=== PATIENT | female | born 1970 | race Caucasian/White ===

== ENCOUNTER 2017-08-23 10:47 | Emergency (ER) | payer OTHER ==
[2017-08-23 11:57] VITALS: BP 120/83
--- NOTE | 2017-08-23 12:19 | UC ---
Ear Complaint HPI - HPI Summary HPI Summary: Pt c/o right ear pain, nasal congestion X 3-4 days. Pt completed 500 mg zithromax X 5 days on 08/16/17 - History of Current Complaint Chief Complaint: UCEar Stated Complaint: RIGHT EAR COUGH SORE THROAT Time Seen by Provider: 08/23/17 11:59 Hx Obtained From: Patient ?: No Onset/Duration: Sudden Onset, Lasting Days Severity Initially: Mild Severity Currently: Moderate Associated Signs/Symptoms: Positive: Hearing Loss, URI Symptoms - Allergies/Home Medications Allergies/Adverse Reactions: Allergies Allergy/AdvReac Type Severity Reaction Status Date / Time Morphine Allergy Severe "MAKES MY Verified 08/23/17 11:48 SKIN BUBBLE" Latex Allergy Unknown Verified 08/23/17 11:48 Reaction Details Sodium Hypochlorite Allergy Unknown Verified 08/23/17 11:48 Reaction Details Aspirin AdvReac Severe GI Upset Verified 08/23/17 11:48 Bleach Allergy Unknown Uncoded 08/23/17 11:48 Reaction Details PMH/Surg Hx/FS Hx/Imm Hx Previously Healthy: Yes Other History Of: Negative For: Anticoagulant Therapy - Surgical History Surgical History: Yes Surgery Procedure, Year, and Place: HYSTERECTOMY 05/2014, TONSILLECTOMY, MOLES REMOVED - Family History Known Family History: Positive: Cardiac Disease - Social History Occupation: Employed Full-time Lives: With Family Alcohol Use: Occasionally Substance Use Type: None Smoking Status (MU): Former Smoker Have You Smoked in the Last Year: No - Immunization History Most Recent Influenza Vaccination: NEVER Vaccination Up to Date: Yes Review of Systems Constitutional: Negative Skin: Negative Eyes: Negative ENT: Ear Ache - right ear, Other - PND Respiratory: Negative Cardiovascular: Negative Gastrointestinal: Negative Genitourinary: Negative Motor: Negative Neurovascular: Negative Musculoskeletal: Negative Neurological: Headache Psychological: Negative Is Patient Immunocompromised?: No All Other Systems Reviewed And Are Negative: Yes Physical Exam Triage Information Reviewed: Yes Appearance: Well-Appearing Vital Signs: Initial Vital Signs Temp 97.8 F 08/23/17 11:50 Pulse 57 08/23/17 11:50 Resp 16 08/23/17 11:50 BP 120/83 08/23/17 11:50 Pulse Ox 100 08/23/17 11:50 Vital Signs Reviewed: Yes Eye Exam: Normal ENT: Positive: Nasal congestion Neck exam: Normal Respiratory Exam: Normal Cardiovascular Exam: Normal Musculoskeletal Exam: Normal Neurological Exam: Normal Psychological Exam: Normal Skin Exam: Normal Ear Complaint Course/Dx - Differential Dx/Diagnosis Differential Diagnosis/HQI/PQRI: Otitis Media, URI Provider Diagnoses: right ear ache. URI Discharge - Discharge Plan Condition: Stable Disposition: HOME Prescriptions: Pseudoephedrine-Guaifenesin [Mucinex D 60-600 mg] 1 tab PO DAILY #10 tab Patient Education Materials: Earache (ED), Viral Syndrome (ED) Referrals: Larry Lucero MD [Medical Doctor] - If Needed
== END 2017-08-23 12:34 | disposition home or self-care (01) ==
LOC: UCCORT 10:47
DX: H92.01 Otalgia, right ear (principal); J06.9 Acute upper respiratory infection, unspecified; Z88.5 Allergy status to narcotic agent; Z88.6 Allergy status to analgesic agent; Z91.040 Latex allergy status; Z87.891 Personal history of nicotine dependence
CPT/HCPCS: 99212; G0463

== ENCOUNTER 2018-10-13 15:09 | Emergency (ER) | payer OTHER ==
[2018-10-13 15:37] VITALS: BP 118/73
[2018-10-13] MEDS ORDERED: Ondansetron ODT TAB* 4 MG PO ONE (15:55)
[2018-10-13] MEDS ORDERED: Ondansetron ODT TAB* 4 MG ONE (15:57)
--- NOTE | 2018-10-13 16:00 | UC ---
Abdominal Pain Female HPI - HPI Summary HPI Summary: Started feeling poorly 6 days ago, gradually developed diarrhea that was worst 2 days ago with 15-20 watery (not bloody) stools that day. Now diarrhea is improving but yesterday and today has nausea, diffuse stomach pains, and retching. Tried to eat but felt worse. Denies fevers. - History of Current Complaint Chief Complaint: UCGeneralIllness Stated Complaint: BODYACHES,NAUSEA Time Seen by Provider: 10/13/18 15:37 Hx Obtained From: Patient Onset/Duration: Gradual Onset, Lasting Days Timing: Constant Severity Initially: Mild Severity Currently: Moderate Pain Intensity: 2 Location: Diffuse Radiates: No Character: Cramping Aggravating Factor(s): Food Alleviating Factor(s): Nothing Associated Signs and Symptoms: Positive: Dizzy, Nausea, Vomiting, Diarrhea Allergies/Adverse Reactions: Allergies Allergy/AdvReac Type Severity Reaction Status Date / Time MS Morphine [Morphine] Allergy Severe "MAKES MY Verified 10/13/18 15:26 SKIN BUBBLE" MS Latex [Latex] Allergy Unknown Verified 10/13/18 15:26 Reaction Details MS Sodium Hypochlorite Allergy Unknown Verified 10/13/18 15:26 [Sodium Hypochlorite] Reaction Details MS Aspirin [Aspirin] AdvReac Severe GI Upset Verified 10/13/18 15:26 Bleach Allergy Unknown Uncoded 10/13/18 15:26 Reaction Details Home Medications: Home Medications Ibuprofen TAB* [Motrin TAB* 600 MG] 600 mg PO ONCE 10/13/18 [History Confirmed 10/13/18] PMH/Surg Hx/FS Hx/Imm Hx Previously Healthy: Yes Other History Of: Negative For: Anticoagulant Therapy - Surgical History Surgical History: Yes Surgery Procedure, Year, and Place: HYSTERECTOMY 05/2014, TONSILLECTOMY, MOLES REMOVED - Family History Known Family History: Positive: Cardiac Disease - Social History Occupation: Employed Full-time - [employer] Alcohol Use: None Substance Use Type: None Smoking Status (MU): Former Smoker Have You Smoked in the Last Year: No When Did the Patient Quit Smoking/Using Tobacco: 2014 - Immunization History Most Recent Influenza Vaccination: NEVER Vaccination Up to Date: Yes Review of Systems All Other Systems Reviewed And Are Negative: Yes Constitutional: Positive: Negative Skin: Positive: Negative Eyes: Positive: Negative ENT: Positive: Negative Respiratory: Positive: Negative Cardiovascular: Positive: Negative Gastrointestinal: Positive: Abdominal Pain, Vomiting, Diarrhea, Nausea Genitourinary: Positive: Negative Motor: Positive: Negative Neurovascular: Positive: Negative Musculoskeletal: Positive: Negative Neurological: Positive: Negative Psychological: Positive: Negative Is Patient Immunocompromised?: No Physical Exam Triage Information Reviewed: Yes Appearance: Ill-Appearing - acute illness, Pain Distress Vital Signs: Initial Vital Signs Temp 97.2 F 10/13/18 15:28 Pulse 57 10/13/18 15:28 Resp 16 10/13/18 15:28 BP 118/73 10/13/18 15:28 Pulse Ox 99 10/13/18 15:28 Vital Signs Reviewed: Yes Eye Exam: Normal Eyes: Positive: Conjunctiva Clear ENT Exam: Normal ENT: Positive: Normal ENT inspection, Hearing grossly normal, Pharynx normal, TMs normal Dental Exam: Normal Neck exam: Normal Neck: Positive: Supple, Nontender, No Lymphadenopathy Respiratory Exam: Normal Respiratory: Positive: Chest non-tender, Lungs clear, Normal breath sounds, No respiratory distress, No accessory muscle use Cardiovascular Exam: Normal Cardiovascular: Positive: RRR, No Murmur Abdomen Description: Positive: Nontender, No Organomegaly, Soft. Negative: CVA Tenderness (R), CVA Tenderness (L), Distended, Guarding Bowel Sounds: Positive: Present Musculoskeletal Exam: Normal Neurological Exam: Normal Neurological: Positive: Alert Psychological Exam: Normal Skin Exam: Normal Abd Pain Female Course/Dx - Differential Dx/Diagnosis Provider Diagnosis: Acute gastroenteritis Discharge - Sign-Out/Discharge Documenting (check all that apply): Patient Departure All imaging exams completed and their final reports reviewed: No Studies - Discharge Plan Condition: Stable Disposition: HOME Prescriptions: Prochlorperazine TAB* [Compazine Tab*] 5 - 10 mg PO Q6H PRN #30 tab PRN Reason: Nausea Patient Education Materials: Gastroenteritis (DC) Forms: *Work Release Referrals: Priti Bruner PA [Primary Care Provider] - - Billing Disposition and Condition Condition: STABLE Disposition: Home - Attestation Statements Provider Attestation: Per institutional requirements, I have reviewed the chart, however, I was not consulted specifically or made aware of this patient by the midlevel provider. I did not personally evaluate, interact with , or disposition this patient.
== END 2018-10-13 16:05 | disposition home or self-care (01) ==
LOC: UCEAST 15:09
DX: K52.9 Noninfective gastroenteritis and colitis, unspecified (principal); Z88.5 Allergy status to narcotic agent; Z88.6 Allergy status to analgesic agent; Z91.040 Latex allergy status; Z87.891 Personal history of nicotine dependence
CPT/HCPCS: 81003; 99212; A9270-GY; G0463

== ENCOUNTER 2018-12-18 17:24 | Emergency (ER) | payer OTHER ==
[2018-12-18] MEDS ORDERED: Ibuprofen TAB* 600 MG PO ONE (17:37)
[2018-12-18 17:47] VITALS: BP 125/77
--- NOTE | 2018-12-18 17:55 | UC ---
FLU HPI - HPI Summary HPI Summary: Weight 48-year-old woman comes in with a chief complaint of one day of fevers chills bodyaches nasal and chest congestion. [id number] medications help some with the symptoms. No shortness of breath. Patient also has a complaint of left-sided abdominal pain. This been going on for months. Patient reports when she stands up she feels a mass coming through the abdominal wall on the left side. She seen her primary care doctor and a planning on doing an ultrasound for further investigation. Since she's been sick yesterday the pain is worse. When she eats it quite often makes the pain worse. Prior to this illness she was not having any fevers. The solidity of her bowel movements is variable. She did have some dysuria a few days ago. Pain primarily is in the left side of the abdomen and it does radiate to the left flank into the left groin. No vomiting. - History of Current Complaint Chief Complaint: UCRespiratory Stated Complaint: RESP COMPLAINT Time Seen by Provider: 12/18/18 17:29 Pain Intensity: 9 - Allergy/Home Medications Allergies/Adverse Reactions: Allergies Allergy/AdvReac Type Severity Reaction Status Date / Time aspirin Allergy GI Upset Verified 12/18/18 17:40 latex Allergy Unknown Verified 12/18/18 17:40 Reaction Details morphine Allergy "Makes my Verified 12/18/18 17:40 skin bubble" sodium hypochlorite solution Allergy Unknown Verified 12/18/18 17:40 Reaction Details Bleach Allergy Unknown Uncoded 10/13/18 15:26 Reaction Details Home Medications: Home Medications NK [No Home Medications Reported] 12/18/18 [History Confirmed 12/18/18] PMH/Surg Hx/FS Hx/Imm Hx Previously Healthy: Yes Other History Of: Negative For: Anticoagulant Therapy - Surgical History Surgical History: Yes Surgery Procedure, Year, and Place: HYSTERECTOMY 05/2014, TONSILLECTOMY, MOLES REMOVED D&C - Family History Known Family History: Positive: Cardiac Disease - Social History Alcohol Use: None Substance Use Type: None Smoking Status (MU): Former Smoker Have You Smoked in the Last Year: No When Did the Patient Quit Smoking/Using Tobacco: 2014 - Immunization History Most Recent Influenza Vaccination: NEVER Vaccination Up to Date: Yes Review of Systems All Other Systems Reviewed And Are Negative: Yes Constitutional: Positive: Fever, Chills Skin: Positive: Negative Eyes: Positive: Negative ENT: Positive: Nasal Discharge, Sinus Congestion Respiratory: Positive: Cough Cardiovascular: Positive: Negative Gastrointestinal: Positive: Abdominal Pain Genitourinary: Positive: Dysuria Motor: Positive: Negative Neurovascular: Positive: Negative Musculoskeletal: Positive: Myalgia Neurological: Positive: Negative Psychological: Positive: Negative Is Patient Immunocompromised?: No Physical Exam Triage Information Reviewed: Yes Appearance: No Pain Distress, Well-Nourished, Ill-Appearing - mild Vital Signs: Initial Vital Signs Temp 99.2 F 12/18/18 17:38 Pulse 94 12/18/18 17:38 Resp 18 12/18/18 17:38 BP 125/77 12/18/18 17:38 Pulse Ox 100 12/18/18 17:38 Vital Signs Reviewed: Yes Eye Exam: Normal Eyes: Positive: Conjunctiva Clear ENT: Positive: Pharyngeal erythema, Nasal congestion, Nasal drainage, TMs normal Neck exam: Normal Neck: Positive: Supple Respiratory: Positive: Lungs clear, Normal breath sounds, No respiratory distress Cardiovascular: Positive: RRR Abdomen Description: Positive: Soft, Other: - Mild tenderness left lateral abd Bowel Sounds: Positive: Present Musculoskeletal Exam: Normal Musculoskeletal: Positive: Strength Intact, ROM Intact Neurological Exam: Normal Neurological: Positive: Alert, Muscle Tone Normal Psychological Exam: Normal Psychological: Positive: Age Appropriate Behavior Skin Exam: Normal Flu Course/Dx - Course Course Of Treatment: EXAM: CT Abdomen and Pelvis Without Contrast EXAM DATE/TIME: 12/18/2018 6:05 PM CLINICAL HISTORY: 48 years old, female; Pain; Abdominal pain; Generalized; Prior surgery; Surgery date: 6+ months; Surgery type: Hysterectomy 2014; Patient HX: Left lower quadrant pain for 1 year with nausea, vomiting on and off, blood in stool at times, hysterectomy in 2014; Additional info: Left abd pain TECHNIQUE: Imaging protocol: Axial computed tomography images of the abdomen and pelvis without contrast. Coronal and sagittal reformatted images were created and reviewed. Radiation optimization: All CT scans at this facility use at least one of these dose optimization techniques: automated exposure control; mA and/or kV adjustment per patient size (includes targeted exams where dose is matched to clinical indication); or iterative reconstruction. COMPARISON: ABD REYNOLDS US ABDOMEN LIMITED 12/18/2018 5:54 PM FINDINGS: Lower thorax: No acute findings. ABDOMEN: Liver: Normal. No mass. Gallbladder and bile ducts: Normal. No calcified stones. No ductal dilation. Pancreas: Normal. No ductal dilation. Spleen: Peripherally calcified 1.5 cm benign-appearing splenic nodule. No recommended followup. Adrenals: Normal. No mass. Kidneys and ureters: Normal. No hydronephrosis. Stomach and bowel: No significant diverticulosis. No diverticulitis or colitis. Appendix: Normal appendix. PELVIS: Bladder: Unremarkable as visualized. Reproductive: Unremarkable as visualized. ABDOMEN and PELVIS: Intraperitoneal space: Normal. No free air. No significant fluid collection. Bones/joints: No acute fracture. No dislocation. Soft tissues: No hernia. No visualized abnormality in the left upper quadrant anterior abdominal wall or elsewhere to account for the clinically palpable finding. Vasculature: Normal. No abdominal aortic aneurysm. Lymph nodes: Normal. No enlarged lymph nodes. Other findings: No other acute disease seen on nonenhanced study. As Above. IMPRESSION: 1. No significant diverticulosis. No diverticulitis or colitis. 2. No hernia. No visualized abnormality in the left upper quadrant anterior abdominal wall or elsewhere to account for the clinically palpable finding. 3. No other acute disease seen on nonenhanced study. As Above. To contact [employer] with a general question: [facility] - [phone] For direct physician to physician contact: Physician Hotline - [phone] [facility] ([facility] Facility ID #[id number]) End of Report Content Attending Doctor: Phuc Quintana ([id number]) Earth Science Teacher: Yon Pang ([id number]) Psych Np: JAC . (JAC) Report Date: 12/18/2018 17:38:00 Report Status: Final Begin of Report Content Patient Name: GIANNI FERRO Medical Record#: [id number] Ordering Physician: Phuc Quintana MD Acct.#: [id number] : 1970 Age: 48 Sex: F Location: [facility] Exam Date: 12/18/181737 ADM Status: REG ER Order Information: CT ABD/PEL W/O Accession Number: [id number] CPT: 32652 EXAM: CT Abdomen and Pelvis Without Contrast EXAM DATE/TIME: 12/18/2018 6:05 PM CLINICAL HISTORY: 48 years old, female; Pain; Abdominal pain; Generalized; Prior surgery; Surgery date: 6+ months; Surgery type: Hysterectomy 2014; Patient HX: Left lower quadrant pain for 1 year with nausea, vomiting on and off, blood in stool at times, hysterectomy in 2014; Additional info: Left abd pain TECHNIQUE: Imaging protocol: Axial computed tomography images of the abdomen and pelvis without contrast. Coronal and sagittal reformatted images were created and reviewed. Radiation optimization: All CT scans at this facility use at least one of these dose optimization techniques: automated exposure control; mA and/or kV adjustment per patient size (includes targeted exams where dose is matched to clinical indication); or iterative reconstruction. COMPARISON: ABD REYNOLDS US ABDOMEN LIMITED 12/18/2018 5:54 PM FINDINGS: Lower thorax: No acute findings. ABDOMEN: Liver: Normal. No mass. Gallbladder and bile ducts: Normal. No calcified stones. No ductal dilation. Pancreas: Normal. No ductal dilation. Spleen: Peripherally calcified 1.5 cm benign-appearing splenic nodule. No recommended followup. Adrenals: Normal. No mass. Kidneys and ureters: Normal. No hydronephrosis. Stomach and bowel: No significant diverticulosis. No diverticulitis or colitis. Appendix: Normal appendix. PELVIS: Bladder: Unremarkable as visualized. Reproductive: Unremarkable as visualized. ABDOMEN and PELVIS: Intraperitoneal space: Normal. No free air. No significant fluid collection. Bones/joints: No acute fracture. No dislocation. Soft tissues: No hernia. No visualized abnormality in the left upper quadrant anterior abdominal wall or elsewhere to account for the clinically palpable finding. Vasculature: Normal. No abdominal aortic aneurysm. Lymph nodes: Normal. No enlarged lymph nodes. Other findings: No other acute disease seen on nonenhanced study. As Above. IMPRESSION: 1. No significant diverticulosis. No diverticulitis or colitis. 2. No hernia. No visualized abnormality in the left upper quadrant anterior abdominal wall or elsewhere to account for the clinically palpable finding. 3. No other acute disease seen on nonenhanced study. As Above. To contact [facility] with a general question: [facility] [phone] For direct physician to physician contact: Physician Hotline - [phone] [facility] ([facility] Facility ID #[id number]) <Electronically signed by Yon Pang MD in [place]> 12/18/18 1290 EXAM: US Abdomen Limited EXAM DATE/TIME: 12/18/2018 5:59 PM CLINICAL HISTORY: 48 years old, female; Pain; Abdominal pain; Other: Left upper quad; Patient HX: Patient complains of lump on left side-. PT pointed to area of pain, area scanned. ; Additional info: Left abdominal wall tenderness/swelling TECHNIQUE: Imaging protocol: Real-time ultrasound of the abdomen with image documentation. Examination is focused on the region of clinical interest. COMPARISON: No relevant prior studies available. FINDINGS: Intraperitoneal space: Scanning in the left upper quadrant in area of palpable abnormality does not document a solid lesion or abnormal fluid collection on the submitted static images. IMPRESSION: Scanning in the left upper quadrant in area of palpable abnormality does not document a solid lesion or abnormal fluid collection on the submitted static images. To contact [facility] with a general question: [facility] [phone] For direct physician to physician contact: Physician Hotline - [phone] [facility] ([facility] Facility ID #[id number]) End of Report Content Attending Doctor: Phuc Quintana ([id number]) Earth Science Teacher: Yon Pang ([id number]) Psych Np: Brian NATHAN (JAC) Report Date: 12/18/2018 17:37:00 Report Status: Final Begin of Report Content Patient Name: GIANNI FERRO Medical Record#: [id number] Ordering Physician: Phuc Quintana MD Acct.#: [id number] : 1970 Age: 48 Sex: F Location: [facility] Exam Date: 12/18/181736 ADM Status: REG ER Order Information: US ABDOMEN LIMITED Accession Number: [id number] CPT: 00673 EXAM: US Abdomen Limited EXAM DATE/TIME: 12/18/2018 5:59 PM CLINICAL HISTORY: 48 years old, female; Pain; Abdominal pain; Other: Left upper quad; Patient HX: Patient complains of lump on left side-. PT pointed to area of pain, area scanned. ; Additional info: Left abdominal wall tenderness/swelling TECHNIQUE: Imaging protocol: Real-time ultrasound of the abdomen with image documentation. Examination is focused on the region of clinical interest. COMPARISON: No relevant prior studies available. FINDINGS: Intraperitoneal space: Scanning in the left upper quadrant in area of palpable abnormality does not document a solid lesion or abnormal fluid collection on the submitted static images. IMPRESSION: Scanning in the left upper quadrant in area of palpable abnormality does not document a solid lesion or abnormal fluid collection on the submitted static images. To contact [facility] with a general question: [facility] - [phone] For direct physician to physician contact: Physician Hotline - [phone] [facility] ([facility] Facility ID #[id number]) <Electronically signed by Yon Pang MD in [place]> 12/18/18 1668 I discussed the ultrasound and CT reports with the patient. Also discussed the influenza and a UA results. With the influenza being negative I do not have a good explanation for the patient's fevers chills headache neck pain and back pain. Patient was given ibuprofen in clinic and that did not help with the symptoms. I recommended further evaluation emergency department. We discussed going by ambulance versus private vehicle. Patient prefers to go by private vehicle. - Differential Dx/Diagnosis Provider Diagnosis: Fever, Headache, Neck pain, Abdominal pain, Back pain Discharge - Sign-Out/Discharge Documenting (check all that apply): Patient Departure All imaging exams completed and their final reports reviewed: Yes - Discharge Plan Condition: Stable Disposition: HOME-RECOMMEND TO ED Referrals: Priti Bruner PA [Primary Care Provider] - Additional Instructions: GO DIRECTLY TO THE EMERGENCY DEPARTMENT FOR FURTHER EVALUATION OF YOUR HEADACHE , NECK PAIN, FEVER, BACK PAIN AND ABDOMINAL PAIN. - Billing Disposition and Condition Condition: STABLE Disposition: Home-Recommend to ED
[2018-12-18 18:02] LABS: Influenza A Molecular NEGATIVE (Negative); Influenza B Molecular NEGATIVE (Negative)
--- NOTE | 2018-12-20 16:00 | UC ---
- Progress Note Progress Note: 12/20/2018 Urine culture:no growth Pt was sent to the ER and was Dx w/ UTI there and Rx Levofloxacin PO Please call back Pt and let her inform her of result and if not improvement of symptoms to f/u w/ her PCP for further management Thank you Cande Juan PA-C Course/Dx - Diagnoses Provider Diagnoses: Fever, Headache, Neck pain, Abdominal pain, Back pain Discharge - Sign-Out/Discharge Documenting (check all that apply): Post-Discharge Follow Up All imaging exams completed and their final reports reviewed: Yes - Discharge Plan Condition: Stable Disposition: HOME-RECOMMEND TO ED Referrals: Priti Bruner PA [Primary Care Provider] - Additional Instructions: GO DIRECTLY TO THE EMERGENCY DEPARTMENT FOR FURTHER EVALUATION OF YOUR HEADACHE , NECK PAIN, FEVER, BACK PAIN AND ABDOMINAL PAIN. - Billing Disposition and Condition Condition: STABLE Disposition: Home-Recommend to ED
== END 2018-12-18 19:15 | disposition home health service (06) ==
LOC: UCEAST 17:24
DX: R50.9 Fever, unspecified (principal); R10.9 Unspecified abdominal pain; M54.9 Dorsalgia, unspecified; M54.2 Cervicalgia; R09.89 Other specified symptoms and signs involving the circulatory and respiratory systems; R09.81 Nasal congestion; R05 Cough; R10.819 Abdominal tenderness, unspecified site; Z88.6 Allergy status to analgesic agent; Z88.8 Allergy status to other drugs, medicaments and biological substances; Z88.5 Allergy status to narcotic agent; Z91.040 Latex allergy status; Z91.048 Other nonmedicinal substance allergy status; Z90.710 Acquired absence of both cervix and uterus; Z87.891 Personal history of nicotine dependence
CPT/HCPCS: 74176; 76705; 81003; 87086; 99212; A9270-GY; G0463

== ENCOUNTER 2018-12-18 19:55 | Emergency (ER) | payer OTHER ==
[2018-12-18] MEDS ORDERED: NS 0.9% 1000 ML** 1,000 ML IV ONE (23:07)
[2018-12-18] MEDS ORDERED: Acetaminophen TAB* 325 MG PO ONE (23:08)
--- NOTE | 2018-12-18 23:08 | ED ---
Back Pain - HPI Summary HPI Summary: This patient is a 48 year old F presenting to [facility] after being sent from the [facility] with a chief complaint of mid-back pain since 1 year ago. The patient rates the pain 6/10 in severity. Patient denies fever. She was determined flu negative at [facility] but not checked for strep throat or given any medicine. Patient has a PSHx of a hysterectomy. - History of Current Complaint Chief Complaint: EDGeneral Stated Complaint: IM HAVING PAIN ON MY SIDE PER PT Time Seen by Provider: 12/18/18 22:46 Hx Obtained From: Patient Onset/Duration: Sudden Onset, Still Present - Since a year ago Onset/Duration: Still Present - Since a year ago Timing: Constant Back Pain Location: Is Discrete @ - Left-sided mid-back pain Severity Initially: Moderate Severity Currently: Moderate Pain Intensity: 6 Pain Scale Used: 0-10 Numeric Associated Signs And Symptoms: Negative: Fever - Allergies/Home Medications Allergies/Adverse Reactions: Allergies Allergy/AdvReac Type Severity Reaction Status Date / Time aspirin Allergy GI Upset Verified 12/18/18 20:06 latex Allergy Unknown Verified 12/18/18 20:06 Reaction Details morphine Allergy "Makes my Verified 12/18/18 20:06 skin bubble" sodium hypochlorite solution Allergy Unknown Verified 12/18/18 20:06 Reaction Details Bleach Allergy Unknown Uncoded 12/18/18 20:06 Reaction Details Home Medications: Home Medications Biotin 5,000 mcg PO DAILY 12/19/18 [History Confirmed 12/19/18] Calcium Citrate 600 mg PO DAILY 12/19/18 [History Confirmed 12/19/18] Iron 65 mg PO DAILY 12/19/18 [History Confirmed 12/19/18] Multivitamin [Once Daily] 1 tab PO DAILY 12/19/18 [History Confirmed 12/19/18] Kersey-3S/Dha/Epa/Fish Oil [Fish Oil 1,200 mg Softgel] 1 tab PO DAILY 12/19/18 [ History Confirmed 12/19/18] PMH/Surg Hx/FS Hx/Imm Hx Endocrine/Hematology History: Denies: Hx Anticoagulant Therapy, Hx Blood Disorders, Hx Blood Transfusions, Hx Bone Marrow Disease, Hx Diabetes, Hx Systemic Lupus Erythematosus, Hx Sickle Cell Disease, Hx Thyroid Disease, Hx Anemia, Hx Unexplained Bleeding, Other Endocrine/Hematological Disorders Cardiovascular History: Denies: Hx Aneurysm, Hx Angina, Hx Angioplasty, Hx Atrial Fibrillation, Hx Auto Implanted Cardiovert Defib, Hx Cardiac Arrest, Hx Cardiomegaly, Hx Congenital Heart Disease, Hx Congestive Heart Failure, Hx Coronary Artery Disease, Hx Deep Vein Thrombosis, Hx Embolism, Hx Hypercholesterolemia, Hx Hypotension, Hx Hypertension, Hx Myocardial Infarction, Hx Pacemaker/ICD, Hx Peripheral Vascular Disease, Hx Rheumatic Fever, Hx Syncope, Hx Valvular Heart Disease, Other Cardiovascular Problems/Disorders Respiratory History: Denies: Hx Asthma, Hx Bronchopulmonary Dysplasia, Hx Chronic Bronchitis, Hx Chronic Obstructive Pulmonary Disease (COPD), Hx Cystic Fibrosis, Hx Lung Cancer , Hx Pleural Effusion, Hx Pneumonia, Hx Pulmonary Edema, Hx Pulmonary Embolism, Hx Seasonal Allergies, Hx Sleep Apnea, Other Respiratory Problems/Disorders GI History: Denies: Hx Cirrhosis, Hx Crohn's Disease, Hx Diverticulosis, Hx Gall Bladder Disease, Hx Gastroesophageal Reflux Disease, Hx Gastrointestinal Bleed, Hx Hiatal Hernia, Hx Irritable Bowel, Hx Jaundice, Hx Obstructive Bowel, Hx Ileostomy, Hx Pyloric Stenosis, Hx Ulcer, Hx Urosepsis, Other GI Disorders History: Reports: Other Problems/Disorders - ovarian cysts, fibroid tumors Musculoskeletal History: Denies: Hx Arthritis, Hx Rheumatoid Arthritis, Hx Back Problems, Hx Bursitis , Hx Congenital Bone Abnormalities, Hx Fibromyalgia, Hx Gout, Hx Orthopedic Injury, Hx Osteoporosis, Hx Scoliosis, Hx Tendonitis, Other Musculoskeletal History Neurological History: Denies: Hx CVA, Hx Dementia, Hx Developmental Delay, Hx Headaches, Hx Migraine, Hx Nerve Disease, Hx Peripheral Neuropathy, Hx Seizures, Hx Spinal Cord Injury, Hx Transient Ischemic Attacks (TIA), Other Neuro Impairments/ Disorders Psychiatric History: Denies: Hx Anxiety, Hx Attention Deficit Hyperactivity Disorder, Hx Autism, Hx Eating Disorder, Hx Oppositional Edmunds Disorder, Hx Depression, Hx Panic Disorder, Hx Post Traumatic Stress Disorder, Hx Inpatient Treatment, Hx Community Mental Health Tx, Hx Schizophrenia, Hx Bipolar Disorder, Hx Suicide Attempt, Hx of Violent Episodes Against Others, Hx Substance Abuse, Other Psychiatric Issues/Disorders - Surgical History Surgery Procedure, Year, and Place: HYSTERECTOMY 05/2014, TONSILLECTOMY, MOLES REMOVED D&C Infectious Disease History: No Infectious Disease History: Denies: Traveled Outside the [place] in Last 30 Days - Family History Known Family History: Positive: Cardiac Disease - Social History Alcohol Use: None Substance Use Type: Reports: None Smoking Status (MU): Former Smoker Have You Smoked in the Last Year: No Review of Systems Negative: Fever Positive: Other - Mid-back pain since 1 year ago All Other Systems Reviewed And Are Negative: Yes Physical Exam - Summary Physical Exam Summary: VITAL SIGNS: Reviewed. GENERAL: Patient is a well-developed and nourished FEMALE who is lying comfortable in the stretcher. Patient is not in any acute respiratory distress. HEAD AND FACE: No signs of trauma. No ecchymosis, hematomas or skull depressions. No sinus tenderness. EYES: PERRLA, EOMI x 2, No injected conjunctiva, no nystagmus. EARS: Hearing grossly intact. Ear canals and tympanic membranes are within normal limits. MOUTH: Bilateral cervical adenopathy. Pharyngeal erythema, no exudates. NECK: Supple, trachea is midline, no adenopathy, no JVD, no carotid bruit, no c- spine tenderness, neck with full ROM. CHEST: Symmetric, no tenderness at palpation LUNGS: Clear to auscultation bilaterally. No wheezing or crackles. CVS: Regular rate and rhythm, S1 and S2 present, no murmurs or gallops appreciated. ABDOMEN: Soft, non-tender. No signs of distention. No rebound no guarding, and no masses palpated. Bowel sounds are normal. EXTREMITIES: FROM in all major joints, no edema, no cyanosis or clubbing. NEURO: Alert and oriented x 3. No acute neurological deficits. Speech is normal and follows commands. SKIN: Dry and warm Triage Information Reviewed: Yes Vital Signs On Initial Exam: Initial Vitals Temp Pulse Resp BP Pulse Ox 99.7 F 89 16 135/84 98 12/18/18 20:00 12/18/18 20:00 12/18/18 20:00 12/18/18 20:00 12/18/18 20:00 Vital Signs Reviewed: Yes Diagnostics - Vital Signs Vital Signs Temp Pulse Resp BP Pulse Ox 12/18/18 21:55 99.0 F 81 161 121/81 97 12/18/18 20:00 99.7 F 89 16 135/84 98 - Laboratory Result Diagrams: 12/18/18 23:33 12/18/18 23:33 Lab Statement: Any lab studies that have been ordered have been reviewed, and results considered in the medical decision making process. - Radiology Chest x-ray Radiology Interpretation Completed By: ED Physician Summary of Radiographic Findings: 00:15. No acute process. Pending official report. Re-Evaluation - Re-Evaluation 1 Re-Evaluation Time: 00:23 Change: Improved Comment: Patient reports that medications have helped. Informed patient of her negative test results. Back Pain Course/Dx - Course Course Of Treatment: This patient is a 48 year old F presenting to [facility] after being sent from the [facility] with a chief complaint of mid-back pain since 1 year ago. Chest x-ray was normal. Patient was d/c with a dx of UTI and back pain, and I instructed her to follow up with her PCP in 1-2 days. - Diagnoses Provider Diagnoses: UTI (urinary tract infection), Back pain Discharge - Sign-Out/Discharge Documenting (check all that apply): Patient Departure - D/C home Patient Received Moderate/Deep Sedation with Procedure: No - Discharge Plan Condition: Stable Disposition: HOME Prescriptions: Ibuprofen TAB* [Motrin TAB* 800 MG] 800 mg PO Q6H PRN #30 tab PRN Reason: Pain Levofloxacin TAB* [Levaquin TAB*] 500 mg PO DAILY #3 tab Patient Education Materials: Urinary Tract Infection in Women (ED), Back Pain ( ED) Referrals: Priti Bruner PA [Primary Care Provider] - 2 Days Additional Instructions: RETURN TO THE EMERGENCY DEPARTMENT FOR CHANGING OR WORSENING SYMPTOMS. FOLLOW UP WITH PCP IN 1-2 DAYS. - Attestation Statements Document Initiated by Scribe: Yes Documenting Scribe: Brian Tay Provider For Whom Scribe is Documenting (Include Credential): Juanita Plummer MD Scribe Attestation: Brian Regan, carlosibed for Juanita Plummer MD on 12/19/18 at 0136. Status of Scribe Document: Ready
[2018-12-18] MEDS ORDERED: Ketorolac INJ* 30 MG/ML 1 ML VIAL IV PUSH ONE (23:11)
[2018-12-18 23:40] LABS: ABS Basophils 0 10^3/ul (0-0.2); ABS Eosinophils 0 10^3/ul (0-0.6); ABS Lymphocytes 0.6 10^3/ul (1.0-4.8); ABS Monocytes 0.4 10^3/ul (0-0.8); ABS Neutrophils 3.7 10^3/ul (1.5-7.7); ABS Nucleated RBC 0 10^3/ul; Eosinophil % 0.1 %; Hematocrit 41 % (33-41); Hemoglobin 13.7 g/dL (12.0-16.0); Lymphocyte % 13.7 %; Mean Corpuscular HGB Conc 34 g/dL (31-36); Mean Corpuscular Hemoglobin 31 pg (27-31); Mean Corpuscular Volume 90 fL (80-97); Mean Platelet Volume 7.8 fL (7.4-10.4); Nucleated Red Blood Cells % 0.1; Platelet Count 174 10^3/uL (150-450); Red Cell Distribution Width 13 % (10.5-15); White Blood Count 4.7 10^3/uL (3.5-10.8)
[2018-12-18 23:58] LABS: Albumin 4.3 g/dL (3.2-5.2); BUN/Creatinine Ratio 13.4 (8-20); Calcium 9.2 mg/dL (8.6-10.3); EGFR African American 89.7 (>60); EGFR Non-African American 74.1 (>60); Globulin 2.1 g/dL (2-4); Potassium 3.4 mmol/L (3.5-5.0); Total Bilirubin 0.4 mg/dL (0.2-1.0); Total Protein 6.4 g/dL (6.4-8.9)
[2018-12-19 00:48] LABS: Urine Appearance Clear; Urine Bacteria Absent (Absent); Urine Bilirubin Negative (Negative); Urine Blood 1+ (Negative); Urine Color Straw; Urine Glucose Negative (Negative); Urine Ketones Negative (Negative); Urine Nitrite Negative (Negative); Urine Protein Negative (Negative); Urine Red Blood Cell Trace(0-2/hpf) (Absent); Urine Specific Gravity 1.005 (1.010-1.030); Urine Squamous Epithelial Cell Present (Absent); Urine Urobilinogen Negative (Negative); Urine White Blood Cell Trace(0-5/hpf) (Absent)
[2018-12-19] MEDS ORDERED: Levofloxacin TAB* 500 MG PO ONE (01:19)
[2018-12-19 02:13] VITALS: BP 118/86
== END 2018-12-19 02:10 | disposition home or self-care (01) ==
LOC: ED 19:55
DX: N39.0 Urinary tract infection, site not specified (principal); M54.9 Dorsalgia, unspecified; Z87.891 Personal history of nicotine dependence; Z88.6 Allergy status to analgesic agent
CPT/HCPCS: 36415; 71045; 80053; 81003; 81015; 85025; 87651; 96361; 96374; 99283; A9270-GY; J1885

== ENCOUNTER 2019-04-12 21:10 | Emergency (ER) | payer OTHER ==
[2019-04-12 21:20] VITALS: BP 131/78
--- NOTE | 2019-04-12 21:56 | UC ---
Complaint Female HPI - HPI Summary HPI Summary: 48-year-old female who has been on amoxicillin and she finished 2 or 3 days ago. She's had some whitish vaginal discharge as well as vaginal burning and has 1 very small ulceration on her labia. - History Of Current Complaint Chief Complaint: UCGeneralIllness Stated Complaint: FEVER Time Seen by Provider: 04/12/19 21:41 Hx Obtained From: Patient Hx Last Menstrual Period: 2013 ?: No Onset/Duration: Gradual Onset Timing: Constant Severity Initially: Mild Severity Currently: Moderate Pain Intensity: 5 Character: Burning Aggravating Factor(s): Other - Patient states she has some burning around the labia and some whitish vaginal discharge. Alleviating Factor(s): Nothing Associated Signs And Symptoms: Positive: Fever - She states she's had a fever at home however she does not present that here., Vaginal Bleeding/Discharge - Patient had some whitish vaginal discharge. She states approximate 1 month ago she was treated for BV and then treated again with the amoxicillin which she finished 2 days ago. - Allergies/Home Medications Allergies/Adverse Reactions: Allergies Allergy/AdvReac Type Severity Reaction Status Date / Time aspirin Allergy GI Upset Verified 04/12/19 21:20 latex Allergy Unknown Verified 04/12/19 21:20 Reaction Details morphine Allergy "Makes my Verified 04/12/19 21:20 skin bubble" sodium hypochlorite solution Allergy Unknown Verified 04/12/19 21:20 Reaction Details Bleach Allergy Unknown Uncoded 04/12/19 21:20 Reaction Details Home Medications: Home Medications [place] Extract 04/12/19 [History] PMH/Surg Hx/FS Hx/Imm Hx Previously Healthy: Yes Other History Of: Negative For: Anticoagulant Therapy - Surgical History Surgical History: Yes Surgery Procedure, Year, and Place: HYSTERECTOMY 05/2014, TONSILLECTOMY, MOLES REMOVED, D&C, TUBAL LIGATION - Family History Known Family History: Positive: Cardiac Disease - Social History Alcohol Use: Occasionally Substance Use Type: None Smoking Status (MU): Former Smoker Have You Smoked in the Last Year: No When Did the Patient Quit Smoking/Using Tobacco: 2014 - Immunization History Most Recent Influenza Vaccination: NEVER Vaccination Up to Date: Yes Review of Systems All Other Systems Reviewed And Are Negative: Yes Genitourinary: Positive: Vaginal/Penile Burning, Vaginal/Penile Itching, Vaginal /Penile Discharge - Whitish discharge with vaginal itching and burning. Is Patient Immunocompromised?: No Physical Exam Triage Information Reviewed: Yes Appearance: Well-Appearing, No Pain Distress, Well-Nourished Vital Signs: Initial Vital Signs Temp 96.9 F 04/12/19 21:14 Pulse 60 04/12/19 21:14 Resp 16 04/12/19 21:14 BP 131/78 04/12/19 21:14 Pulse Ox 99 04/12/19 21:14 Vital Signs Reviewed: Yes Abdomen Description: Positive: Nontender, No Organomegaly, Soft Bowel Sounds: Positive: Present Pelvic Exam: Positive: Other - I visualized the genital area and it appears normal however there is some whitish discharge in the vaginal opening, she has 1 very small flat ulceration left labia but does not appear herpetic or with a secondary skin infection. Musculoskeletal Exam: Normal Neurological Exam: Normal Psychological Exam: Normal Skin Exam: Normal Complaint Female Dx - Course Course Of Treatment: Patient is comfortable here. I think because she's been on the antibiotic she has yeast infection at this point in time. She is to follow-up with her primary care provider or [facility] physician in 3 or 4 days if no improvement. I am going to give her Diflucan to fill the prescription tomorrow. She is not presently sexually active. - Differential Dx/Diagnosis Provider Diagnosis: Yeast infection Discharge - Sign-Out/Discharge Documenting (check all that apply): Patient Departure All imaging exams completed and their final reports reviewed: No Studies - Discharge Plan Condition: Fair Disposition: HOME Prescriptions: Fluconazole 150 MG TAB* [Diflucan 150 MG TAB*] 150 mg PO UC ONCE 1 Days #1 tablet Patient Education Materials: Yeast Infection (ED) Referrals: Priti Bruner PA [Primary Care Provider] - Additional Instructions: Definite follow-up with your [facility] provider if no improvement in 3 or 4 days. - Billing Disposition and Condition Condition: FAIR Disposition: Home
== END 2019-04-12 22:05 | disposition home or self-care (01) ==
LOC: UCEAST 21:10
DX: B37.9 Candidiasis, unspecified (principal); Z88.5 Allergy status to narcotic agent; Z91.040 Latex allergy status; Z87.891 Personal history of nicotine dependence
CPT/HCPCS: 99212; G0463